=== PATIENT | female | born 1935 | race African-American/Black ===

== ENCOUNTER 2017-03-28 15:18 | Emergency (ER) | payer BC, OTHER ==
[~2017-03-28] VITALS: Ht 167.6 cm; Wt 83.0 kg
[~2017-03-28 15:18] MED LIST: ACCUNEB SO1.25 MG/1 INH; APAP500 PO; COLCRYS0.6 MG PO; COUMADIN 5 MG TA5 M1 PO; COUMADIN7.5 MG PO; COZAAR 50 MG TA50 M2 PO; COZAAR100 MG PO; DEMADEX20 MG PO; DESONIDE CR. 1515 GM TOP; DOXYCYCLINE 10100 MG PO; ENOXAPARIN80 MG/0.1 SUBQ; FLONASE 0.05%50 MCG NASAL; GLUCOTROL5 MG PO; IRON325 PO; KLOR-CON 1010 MEQ PO; KLOR-CON M1010 MEQ PO; LASIX 20 MG TAB20 MG PO; LEVOCETIRIZINE D5 MG PO; LOPRESSOR25 PO; PRAVACHOL40 MG PO; PRAVACHOL80 MG PO; PREDNISONE 20 M20 MG PO; ROBITUSSIN100 MG/53 PO; TOPROL XL25 MG PO; ULORIC40 MG PO; XYZAL5 MG PO
[2017-03-28 16:58] LABS: HEMATOCRIT 30.7 % (37.0-47.0); HEMOGLOBIN 10.1 gm/dL (12.0-15.0); MCH 25.1 pg (26.0-34.0); MCHC 32.9 g/dL (28.0-37.0); MCV 76.2 fL (80.0-100.0); PLATELET COUNT 147 thou/uL (150-400); RBC 4.04 mil/uL (4.20-5.00); RDW 16.4 % (10.5-14.5)
[2017-03-28 17:00] LABS: MANUAL DIFF YES
[2017-03-28 17:06] LABS: CALCIUM 8.9 mg/dL (8.5-10.1); CREATININE 2.3 mg/dL (0.6-1.0); POTASSIUM 3.2 mmol/L (3.5-5.1)
[2017-03-28 17:23] LABS: ABSOLUTE NEUTROPHILS 5.6 thou/uL (1.4-8.2); TOTAL CELL COUNT 100
[2017-03-28 17:24] LABS: ANISOCYTOSIS 1+; MICROCYTES 1+
[2017-03-28] MEDS ORDERED: CLEOCIN HCL300 MG PO (17:39)
== END 2017-03-28 18:21 | disposition home or self-care (01) ==
LOC: ER 15:18
PROVIDERS: Nurse Practitioner Family
DX: E11.628 Type 2 diabetes mellitus with other skin complications (principal); L03.116 Cellulitis of left lower limb; L03.115 Cellulitis of right lower limb; J45.909 Unspecified asthma, uncomplicated; I10 Essential (primary) hypertension; D57.3 Sickle-cell trait; Z90.710 Acquired absence of both cervix and uterus; Z90.49 Acquired absence of other specified parts of digestive tract; Z88.0 Allergy status to penicillin; Z88.2 Allergy status to sulfonamides; Z88.8 Allergy status to other drugs, medicaments and biological substances

== ENCOUNTER → 2017-12-17 | Outpatient (CLI) | payer BC ==
[~2017-12-17] MED LIST changes: +CLEOCIN HCL300 MG PO
[2017-12-17 15:06] LABS: ABSOLUTE NEUTROPHILS 12.8 thou/uL (1.4-8.2); ABSOLUTE RETIC COUNT 0.0501 10^6/uL; BASOPHILS 0.1 % (0.0-2.0); HEMATOCRIT 22.3 % (37.0-47.0); LYMPHOCYTES 12.1 % (24.0-44.0); MCH 21.4 pg (26.0-34.0); MCHC 31.6 g/dL (28.0-37.0); MCV 67.8 fL (80.0-100.0); MONOCYTES 2.9 % (1.0-8.0); OBSERVED RETIC COUNT 1.52 % (0.6-2.6); PLATELET COUNT 309 thou/uL (150-400); POLYS 84.9 % (36.0-66.0); RBC 3.29 mil/uL (4.20-5.00); RDW 20.5 % (10.5-14.5); WBC 15.1 thou/uL (4.0-11.0)
[2017-12-17 15:45] LABS: FOLIC ACID 7.6 ng/mL (8.6-58.9)
[2017-12-19 14:09] LABS: TRANSFERRIN RECEPTOR ASSAY 58.1 nmol/L (12.2-27.3)
== END ==
LOC: ULTRA 13:57
PROVIDERS: Internal Medicine
DX: M79.605 Pain in left leg (principal); M79.89 Other specified soft tissue disorders; M25.572 Pain in left ankle and joints of left foot

== ENCOUNTER → 2018-02-11 | Outpatient (CLI) | payer BC | LOC: ULTRA 15:27 | DX: I80.202 Phlebitis and thrombophlebitis of unspecified deep vessels of left lower extremity (principal); M71.22 Synovial cyst of popliteal space [Baker], left knee; R60.1 Generalized edema ==

== ENCOUNTER → 2019-07-08 | Outpatient (CLI) | payer BC | LOC: RAD 11:36 | DX: M16.11 Unilateral primary osteoarthritis, right hip (principal); I70.0 Atherosclerosis of aorta; M25.78 Osteophyte, vertebrae; M47.816 Spondylosis without myelopathy or radiculopathy, lumbar region; R07.81 Pleurodynia; M48.061 Spinal stenosis, lumbar region without neurogenic claudication; Z95.828 Presence of other vascular implants and grafts; Z90.49 Acquired absence of other specified parts of digestive tract; W19.XXXA Unspecified fall, initial encounter ==

== ENCOUNTER → 2020-06-23 | Outpatient (CLI) | payer BC | LOC: SJCVCIMAG 08:57 | PROVIDERS: ATTEND Internal Medicine | DX: I07.1 Rheumatic tricuspid insufficiency (principal); I25.10 Atherosclerotic heart disease of native coronary artery without angina pectoris; Z95.5 Presence of coronary angioplasty implant and graft; Z86.711 Personal history of pulmonary embolism ==

== ENCOUNTER → 2021-01-11 | Outpatient (CLI) | payer MEDICARE | LOC: SJCVC 10:54 | PROVIDERS: ATTEND Internal Medicine | DX: R94.31 Abnormal electrocardiogram [ECG] [EKG] (principal); I49.1 Atrial premature depolarization; R00.0 Tachycardia, unspecified; I25.10 Atherosclerotic heart disease of native coronary artery without angina pectoris; I65.23 Occlusion and stenosis of bilateral carotid arteries; E78.5 Hyperlipidemia, unspecified; E11.22 Type 2 diabetes mellitus with diabetic chronic kidney disease; I12.9 Hypertensive chronic kidney disease with stage 1 through stage 4 chronic kidney disease, or unspecified chronic kidney disease; N18.30 Chronic kidney disease, stage 3 unspecified; J45.909 Unspecified asthma, uncomplicated; K21.9 Gastro-esophageal reflux disease without esophagitis; M19.90 Unspecified osteoarthritis, unspecified site; Z90.49 Acquired absence of other specified parts of digestive tract; Z90.710 Acquired absence of both cervix and uterus; Z98.890 Other specified postprocedural states; Z88.0 Allergy status to penicillin; Z88.8 Allergy status to other drugs, medicaments and biological substances; Z79.01 Long term (current) use of anticoagulants; Z79.4 Long term (current) use of insulin; Z79.899 Other long term (current) drug therapy; Z86.711 Personal history of pulmonary embolism; Z87.891 Personal history of nicotine dependence; Z82.49 Family history of ischemic heart disease and other diseases of the circulatory system ==

== ENCOUNTER → 2021-01-30 | Outpatient (CLI) | payer OTHER | LOC: SJCVCIMAG 08:40 | PROVIDERS: ATTEND Internal Medicine | DX: I34.0 Nonrheumatic mitral (valve) insufficiency (principal); R00.0 Tachycardia, unspecified; I12.9 Hypertensive chronic kidney disease with stage 1 through stage 4 chronic kidney disease, or unspecified chronic kidney disease; E11.22 Type 2 diabetes mellitus with diabetic chronic kidney disease; N18.30 Chronic kidney disease, stage 3 unspecified; E78.5 Hyperlipidemia, unspecified; I25.10 Atherosclerotic heart disease of native coronary artery without angina pectoris; Z87.891 Personal history of nicotine dependence; Z79.01 Long term (current) use of anticoagulants; Z79.4 Long term (current) use of insulin; Z79.899 Other long term (current) drug therapy; Z88.0 Allergy status to penicillin; Z88.2 Allergy status to sulfonamides; Z88.8 Allergy status to other drugs, medicaments and biological substances ==

== ENCOUNTER → 2021-07-12 | Outpatient (CLI) | payer OTHER | LOC: SJCVC 11:03 | PROVIDERS: ATTEND Internal Medicine | DX: R94.31 Abnormal electrocardiogram [ECG] [EKG] (principal); R00.0 Tachycardia, unspecified; I25.10 Atherosclerotic heart disease of native coronary artery without angina pectoris; I65.23 Occlusion and stenosis of bilateral carotid arteries; E78.5 Hyperlipidemia, unspecified; I12.9 Hypertensive chronic kidney disease with stage 1 through stage 4 chronic kidney disease, or unspecified chronic kidney disease; E11.22 Type 2 diabetes mellitus with diabetic chronic kidney disease; N18.30 Chronic kidney disease, stage 3 unspecified; Z79.4 Long term (current) use of insulin; Z79.01 Long term (current) use of anticoagulants; Z87.891 Personal history of nicotine dependence; Z79.899 Other long term (current) drug therapy; Z88.0 Allergy status to penicillin; Z88.5 Allergy status to narcotic agent; Z88.8 Allergy status to other drugs, medicaments and biological substances ==

== ENCOUNTER → 2022-01-14 | Outpatient (CLI) | payer OTHER | LOC: SJCVC 10:24 | PROVIDERS: ATTEND Internal Medicine | DX: R94.31 Abnormal electrocardiogram [ECG] [EKG] (principal); I25.10 Atherosclerotic heart disease of native coronary artery without angina pectoris; I65.23 Occlusion and stenosis of bilateral carotid arteries; E78.5 Hyperlipidemia, unspecified; N18.30 Chronic kidney disease, stage 3 unspecified; I12.9 Hypertensive chronic kidney disease with stage 1 through stage 4 chronic kidney disease, or unspecified chronic kidney disease; R00.0 Tachycardia, unspecified; E11.22 Type 2 diabetes mellitus with diabetic chronic kidney disease; K21.9 Gastro-esophageal reflux disease without esophagitis; E78.00 Pure hypercholesterolemia, unspecified; M19.90 Unspecified osteoarthritis, unspecified site; Z88.8 Allergy status to other drugs, medicaments and biological substances; Z88.0 Allergy status to penicillin; Z88.2 Allergy status to sulfonamides; Z79.4 Long term (current) use of insulin; Z79.01 Long term (current) use of anticoagulants ==